=== PATIENT | female | born 1995 | race African-American/Black ===

== ENCOUNTER 2021-05-23 15:00 | Emergency (ER) | payer OTHER ==
[~2021-05-23] VITALS: Ht 160 cm; Wt 63.5 kg
[2021-05-23 15:30] VITALS: BP 124/77
[2021-05-23] MEDS ORDERED: MEDROL DOSPAK21 TA1 PO (16:16)
== END 2021-05-23 17:05 | disposition home or self-care (01) ==
LOC: ER 15:00
DX: T78.40XA Allergy, unspecified, initial encounter (principal); X58.XXXA Exposure to other specified factors, initial encounter